=== PATIENT | male | born 1955 | race Caucasian/White ===

== ENCOUNTER 2021-06-14 10:19 | Emergency (ER) | payer MEDICAID, SELFPAY ==
[2021-06-14 10:55] VITALS: BP 122/46; PULSE 93; RESP 18; O2SAT 96; BMI 35.2
[2021-06-14 11:50] VITALS: BP 160/88; PULSE 89; RESP 21; TEMP 36.8; O2SAT 96; BMI 38.3
--- NOTE | 2021-06-14 12:09 | HMH.EDUTC ---
[facility] Disposition Clinical Impression: UTI (urinary tract infection) Qualifiers: Urinary tract infection type: site unspecified Hematuria presence: with hematuria Qualified Code(s): N39.0 - Urinary tract infection, site not specified; R31.9 - Hematuria, unspecified Disposition: Home, Self-Care Condition on Discharge: Good Instructions: DI for Urinary Tract Infection (UTI), Urinary Tract Infection Additional Instructions: Drink plenty of fluids. Take tylenol or ibuprofen for pain or fever. Take the medications as directed. Follow up with your regular doctor. GO TO THE ER FOR ANY WORSENING SYMPTOMS Follow up with your primary care doctor for a recheck. If you don't have one, we will give you a list of doctors that are taking new patients. Please call one and get a follow up to make sure you are getting better. Prescriptions: Ciprofloxacin HCl [Cipro 500mg Tab] 500 mg PO BID 10 Days #20 tab Transmission Status: Pending to [id number] Referrals: Provider,Referral, [Primary Care Provider] - Time of Disposition: 12:21 Medical Decision Making - Medical Records Medical records reviewed: No: I reviewed the patient's medical records. - Robert Inquiry Pt receiving controlled substance: No Vital Signs: 06/14/21 10:55 06/14/21 11:50 Temperature 98.3 F Temperature Source Oral Pulse Rate [Left Radial] 93 H 89 Respiratory Rate 18 21 Blood Pressure [Right Arm] 122/46 L 160/88 H Blood Pressure Mean [Right Arm] 71 112 Blood Pressure Source [Right Arm] Automatic Cuff Automatic Cuff Blood Pressure Position [Right Arm] Sitting Sitting 02 Sat by Pulse Oximetry 96 96 Oxygen Delivery Method Room Air Room Air - Lab Data Lab results reviewed: Yes: I reviewed the patient's lab results. Lab Results 06/14/21 12:10: Urine Color Evelin, Urine Appearance Clear, Urine pH 5.5, Ur Specific [place] >= 1.030, Urine Protein 1+, Urine Glucose (UA) Negative, Urine Ketones Trace, Urine Blood 2+, Urine Nitrate Negative, Urine Bilirubin 1+ A, Urine Urobilinogen 1, Ur Leukocyte Esterase Negative Orders (Tests/Meds): ORDERS Category Date Time Status Urine Culture Stat Micro 06/14/21 11:50 Ordered [facility] HPI - General Stated complaint: possible uti Time Seen by Provider: 06/14/21 12:09 Mode of Arrival: Ambulatory Source of Information: Patient Limitations: No Limitations Description of Symptoms (Recalled from Triage Doc. by RN): c/o trouble urinating and burning while urinating, thinks he has some prostate trouble but hasnt seen a doctor about it. Says he has a feeling of motion sickness, denies any flank pain or chest pain at this time. - History of Present Illness Provider Complaint: He has been having burning with urination and low back pain for the past 3 days. His urine has been dark and kind of foul smelling also. He has had a uti and a prostate infection in the past and he thinks that is what is going on now. - Related Data Previous Rx's Medication Instructions Recorded Ciprofloxacin HCl [Cipro 500mg 500 mg PO BID 10 Days #20 tab 06/14/21 Tab] Allergies Allergy/AdvReac Type Severity Reaction Status Date / Time No Known Allergies Allergy Verified 06/14/21 12:10 [facility] History - Hepatitis A Screen Attestation statement:: This patient has been screened for Hepatitis A risk factors. I have reviewed the patient's past medical history: Yes ROS Obtained: Yes All systems reviewed & no additional complaints - Constitutional Constitutional: Reports chills, Denies fever(s), Reports poor appetite, Reports malaise - Eyes Eyes: Denies eye discharge - Gastrointestinal Gastrointestingal: Denies: abdominal pain, diarrhea, nausea, vomiting - Genitourinary Male Genitourinary: Reports as per HPI - Musculoskeletal Musculoskeletal: Reports back pain - Integumentary/Breasts Skin/Breast: Denies rash Physical Exam - General General appearance: alert, in no mary
[2021-06-14 12:15] LABS: Apearance,Urine Clear (Clear); Bilirubin,Urine 1+ (Negative); Blood, Urine 2+ (Negative); Color,Urine Amber (Yellow); Glucose,Urine (UA) Negative (Negative); Ketones,Urine TRACE (Negative); PH,Urine 5.5 (5.0-8.5); Protein,Urine 1+ (Negative); Specific Gravity, Urine >= 1.030 (1.005-1.030); UTC Leukocyte Esterase,Urine Negative (Negative); UTC Nitrate,Urine Negative (Negative); Urobilinogen,Urine 1 EU/dl (0.2)
[2021-06-14 12:27] VITALS: BP 106/88; PULSE 89; RESP 21; TEMP 36.8; O2SAT 96
== END 2021-06-14 12:38 | disposition home or self-care (01) ==
LOC: ER 10:35 → UTC 10:37
PROVIDERS: Emergency Provider Nurse Practitioner Family
DX: N30.01 Acute cystitis with hematuria (principal)
CPT/HCPCS: 81003; 87086; 96372; 99202; G0463

== ENCOUNTER 2021-11-14 11:44 | Inpatient (IN) | payer MEDICAID, SELFPAY ==
[2021-11-14] VITALS (12 sets, daily range): BP systolic 97–152; BP diastolic 48–89; PULSE 76–118; RESP 15–32; TEMP 36.9–37.3; O2SAT 83–100; BMI 43.0; BMI 37.6
--- NOTE | 2021-11-14 11:57 | XR_ITS ---
PROCEDURE INFORMATION: Exam: XR Chest Exam date and time: 11/14/2021 11:57 AM Age: 66 years old Clinical indication: Cough TECHNIQUE: Imaging protocol: XR of the chest. Views: 2 views. COMPARISON: No relevant prior studies available. FINDINGS: Lungs: Course reticular interstitial opacities bilaterally. Pleural spaces: Unremarkable. No pleural effusion. No pneumothorax. Heart/Mediastinum: Unremarkable. No cardiomegaly. Bones/joints: Unremarkable. IMPRESSION: Course reticular interstitial opacities bilaterally may reflect infection, potentially with some background of interstitial lung disease.
--- NOTE | 2021-11-14 12:04 | ECG_ITS ---
APPROVED REPORT Exam: Resting ECG HR:108 bpm ECG Measurements Heart Rate 108 AXES NM 169 P 48 QRSd 88 QRS 25 QT 300 T 57 QTc 363 Conclusion SINUS TACHYCARDIA INDETERMINATE AXIS LOW QRS VOLTAGE IN PRECORDIAL LEADS [QRS DEFLECTION < 1.0 mV IN CHEST LEADS] POSSIBLE ANTERIOR MYOCARDIAL INFARCTION , PROBABLY OLD [30 ms Q WAVE IN V3/V4, OR R < 0.2 mV IN V4] ABNORMAL RHYTHM ECG UNCONFIRMED REPORT Electronically signed by : Sunny Lamb MD 11/14/2021 18:38:09
--- NOTE | 2021-11-14 12:19 | PC.NURSE ---
pt to radiology
--- NOTE | 2021-11-14 12:37 | HMH.EDSOB ---
ED Disposition Clinical Impression: Pneumonia due to COVID-19 virus, Acute respiratory failure with hypoxia Disposition: Admitted As Inpatient Condition on Discharge: Fair Referrals: Provider,Referral, [Primary Care Provider] - - Critical Care Critical Care Time: No Attestation: On 11/14/21, the high probability of a clinically significant, sudden or life threatening deterioration of the following system(s) required my full and direct attention, intervention and personal management. The time I documented below is in addition to time spent performing reported procedures but includes the following listed in this critical care notation. Medical Decision Making - Medical Records Medical records reviewed: Yes: I reviewed the patient's medical records. - Robert Inquiry Pt receiving controlled substance: No Vital Signs: 11/14/21 11:45 11/14/21 12:30 11/14/21 13:00 Temperature 99.2 F Temperature Source Oral Pulse Rate 102 H 102 H Pulse Rate [Radial] 118 H Respiratory Rate 30 H 15 21 Blood Pressure 115/78 119/72 Blood Pressure [Right Arm] 112/73 Blood Pressure Mean 85 87 Blood Pressure Mean [Right Arm] 86 Blood Pressure Position [Right Arm] Sitting 02 Sat by Pulse Oximetry 83 L 96 100 Oxygen Delivery Method Room Air 11/14/21 13:30 11/14/21 14:00 11/14/21 14:30 Temperature Temperature Source Pulse Rate 101 H 90 92 H Pulse Rate [Radial] Respiratory Rate 20 Blood Pressure 101/68 L 108/66 L 107/64 L Blood Pressure [Right Arm] Blood Pressure Mean 79 80 81 Blood Pressure Mean [Right Arm] Blood Pressure Position [Right Arm] 02 Sat by Pulse Oximetry 100 95 96 Oxygen Delivery Method - Lab Data Lab Results 11/14/21 12:50: SARS-CoV-2 (PCR) Detected A, Influenza A Untype (PCR) Not detected, Influenza Type B (PCR) Not detected 11/14/21 12:52: WBC 5.9, RBC 5.50, Hgb 17.7, Hct 51.7, MCV 94.0, MCH 32.2 H, MCHC 34.3, RDW 13.7, Plt Count 269, MPV 8.2, Neut % (Auto) 80.1 H, Lymph % (Auto) 10.5, [place] % (Auto) 8.6, Eos % (Auto) 0.1, Baso % (Auto) 0.6, Neut # (Auto) 4.7, Lymph # (Auto) 0.6 L, [place] # (Auto) 0.5, Eos # (Auto) 0.0, Baso # (Auto) 0.0 11/14/21 12:52: Sodium 134 L, Potassium 4.7, Chloride 96 L, Carbon Dioxide 30, Anion Gap 12.7, BUN 20, Creatinine 1.10, Estimated Creat Clear 63, Estimated GFR 67, Est GFR ( Amer) 82, Glucose 189 H, Calcium 8.3 L, Total Bilirubin 1.7 H, AST 133 H, ALT 89 H, Alkaline Phosphatase 64, Troponin I < 0.01, Total Protein 7.8, Albumin 4.3, Globulin 3.5 H, Albumin/Globulin Ratio 1.2 11/14/21 12:52: Lactate 1.4 Result diagrams: 11/14/21 12:52 11/14/21 12:52 Orders (Tests/Meds): ED MEDICATIONS Generic Name Dose Route Start Last Admin Trade Name Freq PRN Reason Stop Dose Admin Ceftriaxone Sodium 1 gm/ 50 mls @ 100 mls/hr 11/14/21 13:30 11/14/21 14:04 Sodium Chloride IV 11/28/21 13:29 100 mls/hr Q24H DOLLY Administration Discontinued Medications Generic Name Dose Route Start Last Admin Trade Name Freq PRN Reason Stop Dose Admin Albuterol/Ipratropium 3 ml 11/14/21 11:58 11/14/21 12:56 Ipratropium/Albuterol 3 Ml [facility] 11/14/21 11:59 3 ml ONCE ONE Administration Albuterol/Ipratropium 3 ml 11/14/21 13:37 Ipratropium/Albuterol 3 Ml Neb 11/14/21 13:38 ONCE ONE Dexamethasone Sodium Phosphate 10 mg 11/14/21 11:58 11/14/21 12:55 Dexamethasone 4mg/Ml 5ml Mdv IV 11/14/21 11:59 10 mg ONCE ONE Administration Doxycycline Hyclate 100 mg 11/14/21 13:19 Doxycycline Hycl 100 Mg Tablet PO 11/14/21 13:20 ONCE STA ORDERS Category Date Time Status Troponin I Q3H Lab 11/14/21 15:00 Ordered Troponin I Q3H Lab 11/14/21 18:00 Ordered Blood Culture Stat Micro 11/14/21 12:52 Received - Radiology Data #1 Image(s): Chest Image Reviewed: Yes I reviewed the patient's radiology results, Yes I reviewed the patient's radiology image, Yes I reviewed the patient's radiology imag
[2021-11-14 13:12] LABS: Basophils % 0.6 % (0.1-2.0); Eosinophils % 0.1 % (0.1-12.0); Hematocrit 51.7 % (42.0-52.0); Hemoglobin 17.7 g/dL (14.1-18.0); Lymphocytes # 0.6 K/mm3 (0.7-4.5); Lymphocytes % 10.5 % (10-50); Mean Corpuscular HGB Conc 34.3 g/dL (31.8-35.4); Mean Corpuscular Hemoglobin 32.2 pg (27.0-31.2); Mean Platelet Volume 8.2 fl (7.4-10.4); Monocytes # 0.5 K/mm3 (0.1-1.0); Monocytes % 8.6 % (1.7-9.3); Neutrophils # 4.7 K/mm3 (1.8-7.8); Neutrophils % 80.1 % (37.0-80.0); Platelet Count 269 K/mm3 (142-424); Red Cell Distribution Width 13.7 % (11.5-17.5); White Blood Count 5.9 K/mm3 (4.8-10.8)
[2021-11-14 13:14] LABS: Influenza A, PCR Not Detected (NotDetected); Influenza B, PCR Not Detected (NotDetected)
[2021-11-14 13:17] LABS: Chloride 96 mmol/L (98-107); Sodium 134 mmol/L (136-145)
[2021-11-14 13:18] LABS: Potassium 4.7 mmoL/L (3.5-5.1)
[2021-11-14 13:20] LABS: Alanine Aminotransferase 89 U/L (12-78); Albumin Level 4.3 g/dl (3.5-5.0); Albumin/Globulin Ratio 1.2 (1.1-1.8); Alkaline Phosphatase 64 U/L (38-126); Anion Gap 12.7 mEq/L (5-15); Aspartate Amino Transferase 133 U/L (17-59); Bilirubin,Total 1.7 mg/dl (0.2-1.3); Blood Urea Nitrogen 20 mg/dl (9-20); Carbon Dioxide 30 mmol/L (22.0-30.0); Creatinine Clearance Estimated 63 mL/min (50-200); Estimated Glomerular Filt Rate 67 ml/min (>60); GFR (African American) 82 ML/MIN (>60); Globulin 3.5 g/dL (1.3-3.2); Total Protein,Serum 7.8 g/dl (6.3-8.2)
[2021-11-14 13:21] LABS: Calcium 8.3 mg/dl (8.4-10.2); Glucose 189 mg/dl (74-100); Lactic Acid 1.4 mmol/L (0.7-2.1)
--- NOTE | 2021-11-14 13:30 | PC.NURSE ---
PT RESTING UPDATED ON PLAN OF CARE
[2021-11-14 13:38] LABS: Coronavirus 19, PCR Detected (NotDetected)
[2021-11-14 13:38] LABS: Troponin I < 0.01 ng/ml (0.00-0.034)
--- NOTE | 2021-11-14 14:42 | PC.NURSE ---
Dr. Evans returned call to Dr. Jean-Baptiste at this time.
--- NOTE | 2021-11-14 14:57 | PC.NURSE ---
UPDATED PT'S ON PLAN OF CARE. PASSWORD TO CALL IS [phone]
--- NOTE | 2021-11-14 15:35 | PC.NURSE ---
REPORT CALLED TO FLOOR
--- NOTE | 2021-11-14 16:26 | PC.NURSE ---
2nd floor staff down here to get patient and take them to inpatient room.
--- NOTE | 2021-11-14 16:33 | PC.NURSE ---
Pt arrived to the floor at this time
[2021-11-14 17:30] LABS: Hemoglobin A1C 7.5 % (4.0-6.0)
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
--- NOTE | 2021-11-14 17:44 | CT_ITS ---
PROCEDURE INFORMATION: Exam: CTA Chest With Contrast Exam date and time: 11/14/2021 5:44 PM Age: 66 years old Clinical indication: Shortness of breath; Additional info: Covid-19 pneumonia, hypoxia TECHNIQUE: Imaging protocol: Computed tomographic angiography of the chest with contrast. 3D rendering (Not supervised by radiologist): MIP and/or 3D reconstructed images were created by the technologist. Radiation optimization: All CT scans at this facility use at least one of these dose optimization techniques: automated exposure control; mA and/or kV adjustment per patient size (includes targeted exams where dose is matched to clinical indication); or iterative reconstruction. Contrast material: ISOVUE 350; Contrast volume: 70 ml; Contrast route: INTRAVENOUS (IV); COMPARISON: CR XR CHEST 2V 11/14/2021 12:11 PM FINDINGS: Pulmonary arteries: Normal. No pulmonary emboli. Aorta: Unremarkable. No aortic aneurysm. No aortic dissection. Lungs: Chronic interstitial lung disease and pulmonary fibrosis. Superimposed ground-glass opacities consistent with multifocal pneumonia. There is scarring and atelectasis in the left lung base. Pleural spaces: Unremarkable. No pneumothorax. No pleural effusion. Heart: Unremarkable. No cardiomegaly. No pericardial effusion. Lymph nodes: Unremarkable. No enlarged lymph nodes. Gallbladder and bile ducts: Gallstone. Bones/joints: Unremarkable. No acute fracture. Soft tissues: Unremarkable. IMPRESSION: 1. Multifocal pneumonia superimposed on chronic interstitial lung disease and other chronic changes in the lungs. 2. No pulmonary embolism
[2021-11-14 17:56] LABS: Thyroid Stimulating Hormone 0.85 uIU/mL (0.465-4.68)
[2021-11-15] VITALS (10 sets, daily range): BP systolic 120–164; BP diastolic 65–84; PULSE 60–88; RESP 17–19; TEMP 36.5–36.9; O2SAT 92–96; BMI 36.1
[2021-11-15 06:37] LABS: Basophils % 0.2 % (0.1-2.0); Eosinophils % 0.1 % (0.1-12.0); Hematocrit 48.1 % (42.0-52.0); Hemoglobin 16.4 g/dL (14.1-18.0); Lymphocytes % 16.4 % (10-50); Mean Corpuscular HGB Conc 34.1 g/dL (31.8-35.4); Mean Corpuscular Hemoglobin 32.4 pg (27.0-31.2); Mean Platelet Volume 8.5 fl (7.4-10.4); Monocytes # 0.7 K/mm3 (0.1-1.0); Monocytes % 10.4 % (1.7-9.3); Neutrophils # 4.6 K/mm3 (1.8-7.8); Neutrophils % 72.9 % (37.0-80.0); Platelet Count 278 K/mm3 (142-424); Red Blood Count 5.06 M/mm3 (4.60-6.20); Red Cell Distribution Width 13.9 % (11.5-17.5); White Blood Count 6.3 K/mm3 (4.8-10.8)
[2021-11-15 06:42] LABS: Chloride 99 mmol/L (98-107)
[2021-11-15 06:43] LABS: Potassium 4.6 mmoL/L (3.5-5.1); Sodium 134 mmol/L (136-145)
[2021-11-15 06:45] LABS: Blood Urea Nitrogen 20 mg/dl (9-20); Creatinine Clearance Estimated 124 mL/min (50-200); Estimated Glomerular Filt Rate 85 ml/min (>60); GFR (African American) 103 ML/MIN (>60)
[2021-11-15 06:46] LABS: Anion Gap 12.6 mEq/L (5-15); Calcium 8.4 mg/dl (8.4-10.2); Carbon Dioxide 27 mmol/L (22.0-30.0); Glucose 153 mg/dl (74-100)
--- NOTE | 2021-11-15 10:05 | HMH.PHAVTE ---
[facility] Pharmacy VTE Monitoring - Patient Demographics Admission date: 11/15/21 Report Date: 11/15/21 Time: 10:05 Allergies/Adverse Reactions: Patient Allergies No Known Allergies Allergy (Verified 06/14/21 12:10) Height: 1.8 m Weight: 117 kg Patient Problems: Current Active Problems Pneumonia due to COVID-19 virus (Acute) Acute respiratory failure with hypoxia (Acute) Solitary kidney, acquired (Acute) Tobacco abuse (Acute) Back pain (Acute) - VTE Risk Labs: VTE Related Lab Results Hgb 16.4 g/dL (14.1-18.0) 11/15/21 05:15 Hct 48.1 % (42.0-52.0) 11/15/21 05:15 Plt Count 278 K/mm3 (142-424) 11/15/21 05:15 BUN 20 mg/dl (9-20) 11/15/21 05:15 Creatinine 0.90 mg/dl (0.66-1.25) 11/15/21 05:15 Estimated Creat Clear 124 mL/min (50-200) 11/15/21 05:15 VTE Score: 5 VTE Risk Level: Low Risk - Prophylaxis Types of VTE Prophylaxis: Pharmacological Pharmacologic Type: Enoxaparin (LOVENOX ORDERED WITH COVID ORDER SET.)
--- NOTE | 2021-11-15 13:20 | XR_ITS ---
PROCEDURE INFORMATION: Exam: XR Chest Exam date and time: 11/15/2021 1:20 PM Age: 66 years old Clinical indication: Shortness of breath; Additional info: Increased oxygen demand TECHNIQUE: Imaging protocol: XR of the chest. Views: 1 view. COMPARISON: CR XR CHEST 2V 11/14/2021 12:11 PM FINDINGS: Lungs: COPD, interstitial disease, and right upper lobe airspace disease. Pleural spaces: Mild pleural thickening. Heart/Mediastinum: Cardiomegaly. Diaphragm: Asymmetric elevation of the right hemidiaphragm. Bones/joints: Osteopenia and degenerative change. IMPRESSION: COPD, interstitial disease, and right upper lobe airspace disease.
--- NOTE | 2021-11-15 13:51 | P.PN_ITS ---
Internal Medicine - PN: Subj *Date: 11/15/21 *Time: 13:51 Interval history: Today the patient tells me that he has been taking Suboxone and Neurontin which he buys off the street. He is uncertain about his doses. He takes the Suboxone each evening. It sounds like he might be taking fairly high doses of Neurontin. He states that his breathing seems about the same. Exam Vital signs and Labs for Last 24 Hours: Temp Pulse Resp BP Pulse Ox 98.2 F 74 18 129/69 94 L 11/15/21 12:00 11/15/21 12:00 11/15/21 12:00 11/15/21 12:00 11/15/21 12:00 Laboratory Results - last 24 hr 11/14/21 12:52: Hemoglobin A1c 7.5 H 11/14/21 12:52: TSH 0.85 11/15/21 05:15: WBC 6.3, RBC 5.06, Hgb 16.4, Hct 48.1, MCV 95.0 H, MCH 32.4 H, MCHC 34.1, RDW 13.9, Plt Count 278, MPV 8.5, Neut % (Auto) 72.9, Lymph % (Auto) 16.4, [place] % (Auto) 10.4 H, Eos % (Auto) 0.1, Baso % (Auto) 0.2, Neut # (Auto) 4.6, Lymph # (Auto) 1.0, [place] # (Auto) 0.7, Eos # (Auto) 0.0, Baso # (Auto) 0.0 11/15/21 05:15: Sodium 134 L, Potassium 4.6, Chloride 99, Carbon Dioxide 27, Anion Gap 12.6, BUN 20, Creatinine 0.90, Estimated Creat Clear 124, Estimated GFR 85, Est GFR ( Amer) 103 D, Glucose 153 H, Calcium 8.4 I & O for Last 24 hours: Intake & Output 11/13/21 11/14/21 11/15/21 11/16/21 11:59 11:59 11:59 11:59 Intake Total 600 / 600 360 / 360 Balance 600 / 600 360 / 360 Weight 275 lb 257 lb 15.053 oz - *Routine HEENT Exam Head: Present: normocephalic Eye: Present: EOMI, PERRL ENT: Present: mucous membranes moist - *Routine Neck Exam Present: supple. Absent: lymphadenopathy - *Routine Respiratory Exam Present: decreased breath sounds, rales (Left base more prominent than right) - *Routine Cardiovascular Exam Present: RRR - *Routine Abdominal Exam Present: soft, normoactive bowel sounds, obese. Absent: tenderness - *Routine Extremities Exam Absent: cyanosis, clubbing, edema - *Routine Skin Exam Present: warm. Absent: rash - *Routine Neurological Exam Present: alert, oriented X3 Assessment and Plan (1) Acute respiratory failure with hypoxia Status: Acute Category: Medical Code(s): J96.01 - Acute respiratory failure with hypoxia (2) Pneumonia due to COVID-19 virus Status: Acute Category: Medical Code(s): U07.1 - COVID-19; J12.82 - Pneumonia due to coronavirus disease 2019 (3) Tobacco abuse Status: Acute Category: Medical Code(s): Z72.0 - Tobacco use (4) Solitary kidney, acquired Status: Acute Category: Medical Code(s): Z90.5 - Acquired absence of kidney (5) Back pain Status: Acute Category: Medical Code(s): M54.9 - Dorsalgia, unspecified (6) Illicit drug use Status: Acute Category: Social Hx Code(s): F19.90 - Other psychoactive substance use, unspecified, uncomplicated - Assessment and plan all Dx Assessment and Plan for all problems:: Add gabapentin 600 mg 3 times a day.
--- NOTE | 2021-11-15 14:20 | PC.NURSE ---
SPUTUM SAMPLE OBTAINED AND SENT TO LAB
[2021-11-16] VITALS (11 sets, daily range): BP systolic 115–127; BP diastolic 69–78; PULSE 60–90; RESP 16–20; TEMP 36.8–37.2; O2SAT 92–95; BMI 36.6
[2021-11-16 07:35] LABS: Chloride 99 mmol/L (98-107); Potassium 4.7 mmoL/L (3.5-5.1); Sodium 134 mmol/L (136-145)
[2021-11-16 07:37] LABS: Alanine Aminotransferase 70 U/L (12-78); Aspartate Amino Transferase 65 U/L (17-59); Blood Urea Nitrogen 22 mg/dl (9-20); Creatinine Clearance Estimated 125 mL/min (50-200); Estimated Glomerular Filt Rate 75 ml/min (>60); GFR (African American) 91 ML/MIN (>60)
[2021-11-16 07:38] LABS: Albumin Level 3.8 g/dl (3.5-5.0); Albumin/Globulin Ratio 1.2 (1.1-1.8); Alkaline Phosphatase 57 U/L (38-126); Anion Gap 8.7 mEq/L (5-15); Bilirubin,Total 1.1 mg/dl (0.2-1.3); Calcium 8.1 mg/dl (8.4-10.2); Carbon Dioxide 31 mmol/L (22.0-30.0); Globulin 3.1 g/dL (1.3-3.2); Glucose 143 mg/dl (74-100); Total Protein,Serum 6.9 g/dl (6.3-8.2)
--- NOTE | 2021-11-16 08:47 | HMH.ACPN2 ---
Internal Medicine - PN: Subj *Date: 11/16/21 *Time: 08:47 Interval history: Patient states he feels he is breathing better. O2 sats 98 to percent on O2 per nasal cannula at 6 L/min. He denies chest pain. He feels he is eating okay. He states he slept well last night. Chest x-ray repeated yesterday 11/15/2021 revealed COPD, interstitial disease, and right upper lobeAirspace disease. Exam Vital signs and Labs for Last 24 Hours: Temp Pulse Resp BP Pulse Ox 98.4 F 90 16 122/71 92 L 11/16/21 07:42 11/16/21 07:42 11/16/21 07:42 11/16/21 07:42 11/16/21 08:05 Laboratory Results - last 24 hr 11/16/21 06:40: Sodium 134 L, Potassium 4.7, Chloride 99, Carbon Dioxide 31 H, Anion Gap 8.7, BUN 22 H, Creatinine 1.00, Estimated Creat Clear 125, Estimated GFR 75, Est GFR ( Amer) 91, Glucose 143 H, Calcium 8.1 L, Total Bilirubin 1.1, AST 65 H D, ALT 70, Alkaline Phosphatase 57, Total Protein 6.9, Albumin 3.8, Globulin 3.1, Albumin/Globulin Ratio 1.2 I & O for Last 24 hours: Intake & Output 11/13/21 11/14/21 11/15/21 11/16/21 11:59 11:59 11:59 11:59 Intake Total 600 / 600 1080 / 1080 Output Total 500 / 500 Balance 600 / 600 580 / 580 Weight 275 lb 257 lb 15.053 oz 261 lb 11.019 oz - Constitutional no acute distress Comments: Sitting in chair at bedside and has completed his breakfast. He appears comfortable. - *Routine Respiratory Exam Present: crackles (Greater on the left) - *Routine Cardiovascular Exam Present: RRR - *Routine Abdominal Exam Present: soft, normoactive bowel sounds, obese - *Routine Extremities Exam Absent: edema, calf tenderness - *Routine Neurological Exam Present: alert, oriented X3 Assessment and Plan (1) Acute respiratory failure with hypoxia Status: Acute Category: Medical Code(s): J96.01 - Acute respiratory failure with hypoxia (2) Pneumonia due to COVID-19 virus Status: Acute Category: Medical Code(s): U07.1 - COVID-19; J12.82 - Pneumonia due to coronavirus disease 2019 (3) Tobacco abuse Status: Acute Category: Medical Code(s): Z72.0 - Tobacco use (4) Solitary kidney, acquired Status: Acute Category: Medical Code(s): Z90.5 - Acquired absence of kidney (5) Back pain Status: Acute Category: Medical Code(s): M54.9 - Dorsalgia, unspecified (6) Illicit drug use Status: Acute Category: Social Hx Code(s): F19.90 - Other psychoactive substance use, unspecified, uncomplicated - Assessment and plan all Dx Assessment and Plan for all problems:: Continue with current pulmonary care. Pulmonary service to see patient today.
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
[2021-11-16 11:43] LABS: C-Reactive Protein 48.1 mg/L (0-4)
[2021-11-17] VITALS (8 sets, daily range): BP systolic 122–131; BP diastolic 69–84; PULSE 60–90; RESP 16–20; TEMP 36.4–36.6; O2SAT 91–97; BMI 36.1
[2021-11-17 07:34] LABS: Anion Gap 10.3 mEq/L (5-15); Blood Urea Nitrogen 17 mg/dl (9-20); Carbon Dioxide 28 mmol/L (22.0-30.0); Chloride 103 mmol/L (98-107); Creatinine Clearance Estimated 124 mL/min (50-200); Estimated Glomerular Filt Rate 97 ml/min (>60); Potassium 4.3 mmoL/L (3.5-5.1); Sodium 137 mmol/L (136-145)
[2021-11-17 07:35] LABS: Alanine Aminotransferase 62 U/L (12-78); Albumin Level 3.7 g/dl (3.5-5.0); Albumin/Globulin Ratio 1.3 (1.1-1.8); Alkaline Phosphatase 55 U/L (38-126); Aspartate Amino Transferase 44 U/L (17-59); Bilirubin,Total 0.9 mg/dl (0.2-1.3); Calcium 8.6 mg/dl (8.4-10.2); GFR (African American) 118 ML/MIN (>60); Globulin 2.9 g/dL (1.3-3.2); Glucose 149 mg/dl (74-100); Total Protein,Serum 6.6 g/dl (6.3-8.2)
--- NOTE | 2021-11-17 09:13 | P.PN_ITS ---
Internal Medicine - PN: Subj *Date: 11/17/21 *Time: 10:32 Interval history: No acute respiratory events overnight. Patient admits continued improvement in his symptoms. Exam - Constitutional Constitutional:: Present: no acute distress, comfortable - HENMT Exam HENMT: Present: normocephalic, atraumatic - Eye Exam Eyes:: Present: normal appearance both eyes and related structures - Neck Exam Neck:: Present: normal visual inspection - Respiratory Exam Respiratory:: Present: able to speak in complete sentences, no respiratory distress, decreased breath sounds. Absent: wheezing - Cardiovascular Exam Cardiac:: Present: S1, S2 - GI Exam GI:: Present: soft - Skin Exam Skin: Present: warm, no rash - Neurological Exam Neurological: Present: alert, awake, normal cognition - Extremities Exam Extremities: Present: no cyanosis, no clubbing, no edema Assessment and Plan (1) Acute respiratory failure with hypoxia Status: Acute Category: Medical Code(s): J96.01 - Acute respiratory failure with hypoxia (2) Pneumonia due to COVID-19 virus Status: Acute Category: Medical Code(s): U07.1 - COVID-19; J12.82 - Pneumonia due to coronavirus disease 2019 (3) Tobacco abuse Status: Acute Category: Medical Code(s): Z72.0 - Tobacco use (4) Solitary kidney, acquired Status: Acute Category: Medical Code(s): Z90.5 - Acquired absence of kidney (5) Back pain Status: Acute Category: Medical Code(s): M54.9 - Dorsalgia, unspecified (6) Illicit drug use Status: Acute Category: Social Hx Code(s): F19.90 - Other psychoactive substance use, unspecified, uncomplicated - Assessment and plan all Dx Assessment and Plan for all problems:: #Acute hypoxic respiratory failure: #COVID-19 pneumonia: # ILD # Emphysema 66-year-old greater than [id number] smoking smoking 2 to 1/2 packs a day. Not yet vaccinated for COVID-19 pneumonia. Present with worsening respiratory distress found to be positive for COVID-[address] chest from admission reviewed, no evidence of pulmonary embolism, showed bilateral upper lobe predominant emphysema, interstitial changes/pulmonary fibrosis along with groundglass opacities. Dense consolidation noted in lower lobes and groundglass opacities noted in the right middle lobe and left lingula. 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 Afebrile. No evidence of leukocytosis. Interval update: He continued to receive ceftriaxone azithromycin along with remdesivir and dexamethasone. CRP elevated at 48.1. Respiratory status improving with improving oxygen saturations, saturating 95% on 4 L nasal cannula, weaned to 3 L. We will continue to wean as tolerated. Plan: -Continue awake proning protocol, discussed with the patient this morning and agreed to be compliant -Ceftriaxone and azithromycin x5 days for community-acquired pneumonia, can be weaned to levofloxacin to complete a total of 5-day course -Continue remdesivir x 5 days OR untill Discharge and dexamethasone x 10 days for COVID-19 pneumonia, will hold off on initiating baricitinib at this point of time. -Advair 250 twice daily scheduled along with Combivent every 6 hours as needed basis. -Recommend volume restriction with net negative daily goal #Thank you for involving pulmonary in this patient care. We will continue to follow.
--- NOTE | 2021-11-17 09:52 | P.PN_ITS ---
Internal Medicine - PN: Subj *Date: 11/17/21 *Time: 09:52 Interval history: He is clinically quite stable but remains on 6 L of nasal O2. Discussed follow- up. Exam Vital signs and Labs for Last 24 Hours: Temp Pulse Resp BP Pulse Ox 97.8 F 83 20 131/77 96 11/17/21 08:00 11/17/21 08:00 11/17/21 08:00 11/17/21 08:00 11/17/21 08:00 Laboratory Results - last 24 hr 11/16/21 06:40: C-Reactive Protein 48.1 H 11/17/21 06:47: Sodium 137, Potassium 4.3, Chloride 103, Carbon Dioxide 28, Anion Gap 10.3, BUN 17, Creatinine 0.80, Estimated Creat Clear 124, Estimated GFR 97, Est GFR ( Amer) 118 D, Glucose 149 H, Calcium 8.6, Total Bilirubin 0.9, AST 44 D, ALT 62, Alkaline Phosphatase 55, Total Protein 6.6, Albumin 3.7, Globulin 2.9, Albumin/Globulin Ratio 1.3 I & O for Last 24 hours: Intake & Output 11/14/21 11/15/21 11/16/21 11/17/21 11:59 11:59 11:59 11:59 Intake Total 600 / 600 1080 / 1080 840 / 840 Output Total 800 / 800 325 / 325 Balance 600 / 600 280 / 280 515 / 515 Weight 275 lb 257 lb 15.053 oz 261 lb 11.019 oz 258 lb 6.4 oz Microbiology Reports for the Last 24 Hours: Microbiology 11/16/21 11:40 Sputum - Expectorated Sputum Gram Stain - Final 11/16/21 11:40 Sputum - Expectorated Sputum Sputum Culture - Preliminary 11/14/21 12:52 Blood Blood Culture - Preliminary NO GROWTH AFTER 48 HOURS 11/14/21 12:52 Blood Blood Culture - Preliminary NO GROWTH AFTER 48 HOURS - Constitutional no acute distress - *Routine HEENT Exam Head: Present: normocephalic Eye: Present: EOMI, PERRL ENT: Present: mucous membranes moist - *Routine Neck Exam Present: supple. Absent: lymphadenopathy - *Routine Respiratory Exam Present: decreased breath sounds, rales - *Routine Cardiovascular Exam Present: RRR - *Routine Abdominal Exam Present: soft, normoactive bowel sounds, obese. Absent: tenderness - *Routine Extremities Exam Absent: cyanosis, clubbing, edema - *Routine Skin Exam Present: warm. Absent: rash - *Routine Neurological Exam Present: alert, oriented X3 Assessment and Plan (1) Acute respiratory failure with hypoxia Status: Acute Category: Medical Code(s): J96.01 - Acute respiratory failure with hypoxia (2) Pneumonia due to COVID-19 virus Status: Acute Category: Medical Code(s): U07.1 - COVID-19; J12.82 - Pneumonia due to coronavirus disease 2019 (3) Tobacco abuse Status: Acute Category: Medical Code(s): Z72.0 - Tobacco use (4) Solitary kidney, acquired Status: Acute Category: Medical Code(s): Z90.5 - Acquired absence of kidney (5) Back pain Status: Acute Category: Medical Code(s): M54.9 - Dorsalgia, unspecified (6) Illicit drug use Status: Acute Category: Social Hx Code(s): F19.90 - Other psychoactive substance use, unspecified, uncomplicated - Assessment and plan all Dx Assessment and Plan for all problems:: Continue present treatment.
[2021-11-18] VITALS: BP 113/64; PULSE 50; PULSE 59; RESP 16; TEMP 36.3; O2SAT 95
[2021-11-18 04:00] VITALS: BP 125/74; PULSE 50; PULSE 53; RESP 16; TEMP 36.4; O2SAT 100
[2021-11-18 04:58] VITALS: BMI 36.6
[2021-11-18 06:58] LABS: Albumin Level 3.6 g/dl (3.5-5.0); Albumin/Globulin Ratio 1.2 (1.1-1.8); Alkaline Phosphatase 49 U/L (38-126); Anion Gap 10.4 mEq/L (5-15); Bilirubin,Total 0.9 mg/dl (0.2-1.3); Blood Urea Nitrogen 18 mg/dl (9-20); Calcium 8.5 mg/dl (8.4-10.2); Carbon Dioxide 28 mmol/L (22.0-30.0); Chloride 104 mmol/L (98-107); Creatinine Clearance Estimated 125 mL/min (50-200); Estimated Glomerular Filt Rate 114 ml/min (>60); GFR (African American) 137 ML/MIN (>60); Glucose 132 mg/dl (74-100); Potassium 4.4 mmoL/L (3.5-5.1); Sodium 138 mmol/L (136-145); Total Protein,Serum 6.6 g/dl (6.3-8.2)
[2021-11-18 07:40] VITALS: BP 117/56; PULSE 55; RESP 20; TEMP 36.6; O2SAT 92
[2021-11-18 08:00] VITALS: PULSE 60
--- NOTE | 2021-11-18 08:31 | HMH.ACPN2 ---
Internal Medicine - PN: Subj *Date: 11/18/21 *Time: 08:31 Interval history: Patient states he has a minimal cough. He denies shortness of breath. He denies chest pain. He is ambulated in the room without problems. He is eating without problems as well. He states he may go home today. Initially nurses had him down to 1 L/min of oxygen and had to increase him during the night to 2 L. O2 sats are good on room air this AM.Blood chemistries this morning show normal electrolytes and renal function. Exam Vital signs and Labs for Last 24 Hours: Temp Pulse Resp BP Pulse Ox 97.9 F 55 L 20 117/56 L 92 L 11/18/21 07:40 11/18/21 07:40 11/18/21 07:40 11/18/21 07:40 11/18/21 07:40 Laboratory Results - last 24 hr 11/18/21 06:01: Sodium 138, Potassium 4.4, Chloride 104, Carbon Dioxide 28, Anion Gap 10.4, BUN 18, Creatinine 0.70, Estimated Creat Clear 125, Estimated GFR 114, Est GFR ( Amer) 137, Glucose 132 H, Calcium 8.5, Total Bilirubin 0.9, Alkaline Phosphatase 49, Total Protein 6.6, Albumin 3.6, Globulin 3.0, Albumin/Globulin Ratio 1.2 I & O for Last 24 hours: Intake & Output 11/15/21 11/16/21 11/17/21 11/18/21 11:59 11:59 11:59 11:59 Intake Total 600 / 600 1080 / 1080 840 / 840 840 / 840 Output Total 800 / 800 325 / 325 2 / 2 Balance 600 / 600 280 / 280 515 / 515 838 / 838 Weight 257 lb 15.053 oz 261 lb 11.019 oz 258 lb 6.4 oz 262 lb 1.6 oz Microbiology Reports for the Last 24 Hours: Microbiology 11/16/21 11:40 Sputum - Expectorated Sputum Gram Stain - Final 11/16/21 11:40 Sputum - Expectorated Sputum Sputum Culture - Preliminary - Constitutional no acute distress Comments: Sitting in chair at bedside and appears comfortable. No dyspnea with talking - *Routine Respiratory Exam Present: rhonchi (Rare rhonchi in bases with good air exchange) - *Routine Cardiovascular Exam Present: RRR - *Routine Abdominal Exam Present: soft, normoactive bowel sounds, obese, hernia. Absent: tenderness, distended - *Routine Extremities Exam Absent: edema, calf tenderness - *Routine Neurological Exam Absent: alert, oriented X3 Assessment and Plan (1) Acute respiratory failure with hypoxia Status: Acute Category: Medical Code(s): J96.01 - Acute respiratory failure with hypoxia (2) Pneumonia due to COVID-19 virus Status: Acute Category: Medical Code(s): U07.1 - COVID-19; J12.82 - Pneumonia due to coronavirus disease 2019 (3) Tobacco abuse Status: Acute Category: Medical Code(s): Z72.0 - Tobacco use (4) Solitary kidney, acquired Status: Acute Category: Medical Code(s): Z90.5 - Acquired absence of kidney (5) Back pain Status: Acute Category: Medical Code(s): M54.9 - Dorsalgia, unspecified (6) Illicit drug use Status: Acute Category: Social Hx Code(s): F19.90 - Other psychoactive substance use, unspecified, uncomplicated - Assessment and plan all Dx Assessment and Plan for all problems:: Possible discharge today.
--- NOTE | 2021-11-18 09:15 | HMH.ACPN ---
Internal Medicine - PN: Subj *Date: 11/18/21 *Time: 09:15 Exam Vital signs and Labs for Last 24 Hours: Temp Pulse Resp BP Pulse Ox 97.9 F 55 L 20 117/56 L 92 L 11/18/21 07:40 11/18/21 07:40 11/18/21 07:40 11/18/21 07:40 11/18/21 07:40 Laboratory Results - last 24 hr 11/18/21 06:01: Sodium 138, Potassium 4.4, Chloride 104, Carbon Dioxide 28, Anion Gap 10.4, BUN 18, Creatinine 0.70, Estimated Creat Clear 125, Estimated GFR 114, Est GFR ( Amer) 137, Glucose 132 H, Calcium 8.5, Total Bilirubin 0.9, Alkaline Phosphatase 49, Total Protein 6.6, Albumin 3.6, Globulin 3.0, Albumin/Globulin Ratio 1.2 I & O for Last 24 hours: Intake & Output 11/15/21 11/16/21 11/17/21 11/18/21 23:59 23:59 23:59 23:59 Intake Total 1080 / 1080 960 / 960 720 / 720 360 / 360 Output Total 500 / 500 500 / 500 125 / 127 2 / 2 Balance 580 / 580 460 / 460 595 / 593 358 / 358 Weight 117 kg 118.7 kg 117.208 kg 118.887 kg Microbiology Reports for the Last 24 Hours: Microbiology 11/16/21 11:40 Sputum - Expectorated Sputum Gram Stain - Final 11/16/21 11:40 Sputum - Expectorated Sputum Sputum Culture - Preliminary Assessment and Plan (1) Acute respiratory failure with hypoxia Status: Acute Category: Medical Code(s): J96.01 - Acute respiratory failure with hypoxia (2) Pneumonia due to COVID-19 virus Status: Acute Category: Medical Code(s): U07.1 - COVID-19; J12.82 - Pneumonia due to coronavirus disease 2019 (3) Tobacco abuse Status: Acute Category: Medical Code(s): Z72.0 - Tobacco use (4) Solitary kidney, acquired Status: Acute Category: Medical Code(s): Z90.5 - Acquired absence of kidney (5) Back pain Status: Acute Category: Medical Code(s): M54.9 - Dorsalgia, unspecified (6) Illicit drug use Status: Acute Category: Social Hx Code(s): F19.90 - Other psychoactive substance use, unspecified, uncomplicated The patient's infection will respond to the chosen ABx?: Yes Is the patient receiving the right drug, dose, and route?: Yes Could a more targeted ABx be ordered?: No
--- NOTE | 2021-11-18 09:34 | HMH.PULMPN ---
Internal Medicine - PN: Subj *Date: 11/18/21 *Time: 10:38 Interval history: No acute respiratory events overnight. Patient admits continued improvement in his symptoms. Exam - Constitutional Constitutional:: Present: no acute distress, comfortable - HENMT Exam HENMT: Present: normocephalic, atraumatic - Eye Exam Eyes:: Present: normal appearance both eyes and related structures - Neck Exam Neck:: Present: normal visual inspection - Respiratory Exam Respiratory:: Present: able to speak in complete sentences, no respiratory distress, normal respiratory effort, rales - Cardiovascular Exam Cardiac:: Present: S1, S2 - GI Exam GI:: Present: soft - Skin Exam Skin: Present: warm, no rash - Neurological Exam Neurological: Present: alert, awake, normal cognition - Extremities Exam Extremities: Present: no cyanosis, no clubbing, no edema Assessment and Plan (1) Acute respiratory failure with hypoxia Status: Acute Category: Medical Code(s): J96.01 - Acute respiratory failure with hypoxia (2) Pneumonia due to COVID-19 virus Status: Acute Category: Medical Code(s): U07.1 - COVID-19; J12.82 - Pneumonia due to coronavirus disease 2019 (3) Tobacco abuse Status: Acute Category: Medical Code(s): Z72.0 - Tobacco use (4) Solitary kidney, acquired Status: Acute Category: Medical Code(s): Z90.5 - Acquired absence of kidney (5) Back pain Status: Acute Category: Medical Code(s): M54.9 - Dorsalgia, unspecified (6) Illicit drug use Status: Acute Category: Social Hx Code(s): F19.90 - Other psychoactive substance use, unspecified, uncomplicated - Assessment and plan all Dx Assessment and Plan for all problems:: #Acute hypoxic respiratory failure: #COVID-19 pneumonia: # ILD # Emphysema 66-year-old greater than [id number] smoking smoking 2 to 1/2 packs a day. Not yet vaccinated for COVID-19 pneumonia. Present with worsening respiratory distress found to be positive for COVID-[address] chest from admission reviewed, no evidence of pulmonary embolism, showed bilateral upper lobe predominant emphysema, interstitial changes/pulmonary fibrosis along with groundglass opacities. Dense consolidation noted in lower lobes and groundglass opacities noted in the right middle lobe and left lingula. 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 Afebrile. No evidence of leukocytosis. CRP elevated at 48.1. Interval update: He continued to receive ceftriaxone azithromycin along with remdesivir and dexamethasone. Respiratory status continued to improve, he on 2 L saturating 92% and above. Plan: -Continue nasal cannula oxygen supplementation to maintain O2 saturation goal of 90% and above. -Ceftriaxone and azithromycin x5 days for community-acquired pneumonia, will be completing his 5-day course today. -Continue remdesivir x 5 days OR untill Discharge and dexamethasone x 10 days for COVID-19 pneumonia, will hold off on initiating baricitinib at this point of time. -Advair 250 twice daily scheduled along with Combivent every 6 hours as needed basis. -Recommend volume restriction with net negative daily goal #Thank you for involving pulmonary in this patient care. Follow the patient in pulmonary clinic in 4 to 6 weeks.
[2021-11-18 09:42] LABS: Alanine Aminotransferase 70 U/L (12-78); Aspartate Amino Transferase 57 U/L (17-59)
--- NOTE | 2021-11-18 10:47 | PC.NURSE ---
Pts RA sat is 94% but decreases to 87% on ambulation. He was placed back on 2L NC and O2 saturation returned to 95%.
--- NOTE | 2021-11-18 10:52 | PC.NURSE ---
Pt waiting on O2 to be delivered from [facility], pts ride home is on her way.
[2021-11-18 11:20] VITALS: BP 125/74; PULSE 60; RESP 18; TEMP 36.8; O2SAT 90
--- NOTE | 2021-11-18 11:25 | CARE MANAGER ---
Patient Choice signed for [facility] r/t need for home O2. Order/clinical faxed and Kay with [facility] notified of new referral.
--- NOTE | 2021-11-19 14:11 | CARE MANAGER ---
CM called patient to discuss post discharge needs. Patient states that he has home O2 set up and is planning to get an O2 sensor so that he can check his status at home. He states that he has not had a chance to citrus picker his medication at the pharmacy and I educated him on importance of getting those picked up and started today. Patient voiced no needs at this time.
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
== END 2021-11-18 12:05 | disposition home or self-care (01) | DRG 177 ==
LOC: ER 14:45 → 2ND 15:02
PROVIDERS: Internal Medicine Pulmonary Disease; Admitting Provider Family Medicine; Emergency Provider Emergency Medicine; Visit Provider Family Medicine
DX: U07.1 COVID-19 (principal); J96.01 Acute respiratory failure with hypoxia; J12.82 Pneumonia due to coronavirus disease 2019; J84.9 Interstitial pulmonary disease, unspecified; F17.210 Nicotine dependence, cigarettes, uncomplicated; Z90.5 Acquired absence of kidney; G89.29 Other chronic pain; M79.662 Pain in left lower leg; M54.9 Dorsalgia, unspecified; J43.9 Emphysema, unspecified; R06.02 Shortness of breath
CPT/HCPCS: 36415; 71045; 71046; 71275; 80048; 80053; 83036; 83605; 84443; 84484; 85025; 86140; 87040; 87070; 87077; 87186; 87205; 93005; 94640; 94761; 96365; 96367; 96375; 99284; C9803; J0456; J0696; Q9967; U0003; U0005

== ENCOUNTER → 2022-02-04 12:29 | Outpatient (CLI) | payer MEDICAID, SELFPAY ==
[2022-02-04 13:30] VITALS: PULSE 86; PULSE 87
--- NOTE | 2022-02-04 14:04 | CT_ITS ---
FINAL REPORT CLINICAL HISTORY: lung cancer screening, current smoker 2ppd x40 years COMPARISON: January 29 and November 14, 2021 FINDINGS: Low-Dose Chest CT CTDI vol (mGy): 2.90 DLP (mGy-cm): 107.07 Axial images were obtained from the lung apex to the mid abdomen by computed tomography. Low-dose protocol was utilized. FINDINGS: CHEST: There is no axillary adenopathy. There is no hilar or mediastinal adenopathy. The heart is proper size. There is no pericardial or pleural effusion. There is moderate thickening of the entire thoracic esophagus favored to be inflammatory. Limited images of the upper abdomen are unremarkable. Lung window images demonstrate moderate changes of emphysema. There is moderate, predominantly peripheral, fibrosis/scarring. There are mild pulmonary ground-glass opacities that may represent resolving pneumonia. A 7 mm nodule is seen in the right upper lobe. There is a 2 mm nodule right lower lobe on image 53. A calcified granuloma is seen in the right lower lobe. IMPRESSION: S-modifier: Thickening of the entire thoracic esophagus, favor inflammatory. If indicated this could be further evaluated with upper endoscopy. Lung RADS category 3S. Recommend 6 month follow-up low-dose chest CT. Reviewed, Interpreted and Dictated by Adam Gloria III, MD Transcribed by Roge Casarez Authenticated by Adam Gloria III, MD on 02/04/2022 02:42:53 PM [facility]
--- NOTE | 2022-02-04 14:04 | XR_ITS ---
FINAL REPORT CLINICAL HISTORY: SOB, smoker COMPARISON: November 15, 2021 FINDINGS: Two views of the chest were obtained. The heart size and pulmonary vascularity are within normal limits. The mediastinum is normal. There is mild scarring/fibrosis. There is improved aeration of the lungs since the prior exam. There is no pneumothorax. The bony thorax is intact. IMPRESSION: Mild scarring/fibrosis. Improved aeration of the lungs. Reviewed, Interpreted and Dictated by Adam Gloria III, MD Transcribed by Irais Schaefer Authenticated by Adam Gloria III, MD on 02/04/2022 02:42:[address] [facility]
== END ==
PROVIDERS: PCP Internal Medicine; Visit Provider Internal Medicine Pulmonary Disease
DX: R06.02 Shortness of breath; R06.00 Dyspnea, unspecified; Z87.891 Personal history of nicotine dependence; Z12.2 Encounter for screening for malignant neoplasm of respiratory organs
CPT/HCPCS: 71046; 71271; 94060; 94618; 94640; 94727; 94729; 94762

== ENCOUNTER 2024-07-07 18:05 | Emergency (ER) | payer MEDICARE, SELFPAY ==
[2024-07-07 18:06] VITALS: BP 162/72; PULSE 105; RESP 13; TEMP 36.7; O2SAT 93; BMI 23.0
--- NOTE | 2024-07-07 18:25 | XR_ITS ---
PROCEDURE INFORMATION: Exam: XR Chest Exam date and time: 07/07/2024 6:39 PM Age: 68 years old Clinical indication: Shortness of breath TECHNIQUE: Imaging protocol: Radiologic exam of the chest. Views: 2 views. COMPARISON: CR XR CHEST 2V 02/04/2022 2:12 PM FINDINGS: Lungs: Diffuse increased interstitial lung markings. Pleural spaces: No large pleural effusion. No pneumothorax. Heart/Mediastinum: No cardiomegaly. Bones/joints: No acute findings. IMPRESSION: Diffuse increased interstitial lung markings, which may be seen with pulmonary edema or infection in the acute setting.
--- NOTE | 2024-07-07 18:30 | HMH.EDGENADL ---
Discharge Plan Disposition Patient Disposition: Home, Self-Care Condition: Good Prescriptions Prescriptions: New clindamycin HCl 300 mg capsule 300 mg PO TID 5 Days Qty: 15 0RF No Action metformin 1,000 mg tablet 1,000 mg PO BID Farxiga 10 mg tablet 10 mg PO DAILY albuterol sulfate 90 mcg/actuation HFA aerosol inhaler 2 inh IH Q6H PRN (Reason: shortness of breath or wheezing) 90 Days Qty: 8.5 3RF fluticasone propion-salmeterol 28 PUFFS/50 MCG inhaler 1 puffs IH BIDRT Qty: 1 2RF gabapentin 600 MG tablet 600 mg PO TID Qty: 90 1RF famotidine 20 MG tablet 20 mg PO BID Qty: 60 2RF ascorbic acid (vitamin C) 500 MG tablet 500 mg PO QID Qty: 120 0RF ergocalciferol (vitamin D2) 50,000 UNIT capsule 50,000 unit PO WEEKLY Qty: 4 1RF zinc sulfate 220 MG capsule 220 mg PO DAILY 0RF dexamethasone 6 MG tablet 6 mg PO DAILY Qty: 20 0RF cefdinir 300 MG capsule 300 mg PO BID Qty: 20 0RF Referrals Follow up/Referrals: Godfrey Joshua MD [Primary Care Provider] - See instructions Activity Restrictions/Add. Instructions Additional Instructions/Restrictions: Stop taking the Bactrim and take clindamycin instead. Follow-up with your primary care physician on Tuesday or Tuesday of next week to see if your symptoms are improving. If you develop any new or worsening symptoms, such as fever, worsening swelling or redness after 2 days of antibiotics, or if you become concerned for your health for any reason, return to the emergency department for evaluation. Clinical Impressions Clinical Impression: Cellulitis of hand Print Language Print Language: Albanian Discharge ED Provider: Teo Esteban Adult HPI General Chief complaint: PAIN Stated complaint: swelling, hands to shoulders Time Seen by Provider: 07/07/24 18:15 Mode of Arrival: Ambulatory Source of Information: Patient Limitations: No Limitations Description of Symptoms (Recalled from ER Triage Doc. by RN): pt recently seen at [facility] ER for same isues. pt report swelling in right wrist and elbow begining on when he was seen . pt reports swelling has progressedd to right shoulder, right hip, left side of throat, left hand and right hand. no difficulty breathing. pt diagnosed with lymphangitis and given bactrim . History of Present Illness HPI narrative: Batool Mobley is a 68-year-old male with a past medical history of COPD presenting to the emergency department for complaints of swelling in both of his hands. Patient states that on of last week, after hitting his elbow, he developed swelling to his right hand that then spread to his left hand. He states that he feels like his right shoulder is swollen and that his throat is swollen now. He notes that he has red streaking up his left hand into his arm. He was seen at [facility] on 07/05 and was told that he has not lymphangina and was prescribed Bactrim. He has been taking the Bactrim but states that his symptoms have not improved. He denies any fevers but does report some mild shortness of breath. He notes that something similar happened when he was diagnosed with cellulitis in the past that resolved with antibiotics. Related Data Home Medications ?Medication ?Instructions ?Recorded ?Confirmed dapagliflozin propanediol 10 mg 10 mg PO DAILY 02/09/22 02/09/22 tablet (Farxiga) metformin 1,000 mg tablet 1,000 mg PO BID 02/09/22 02/09/22 Previous Rx's ?Medication ?Instructions ?Recorded ascorbic acid (vitamin C) 500 mg 500 mg PO QID #120 tabs 11/18/21 tablet cefdinir 300 mg capsule 300 mg PO BID #20 caps 11/18/21 dexamethasone 6 mg tablet 6 mg PO DAILY #20 tabs 11/18/21 ergocalciferol (vitamin D2) 1,250 50,000 unit PO WEEKLY #4 caps 11/18/21 mcg (50,000 unit) capsule famotidine 20 mg tablet 20 mg PO BID #60 tabs 11/18/21 fluticasone 250 mcg-salmeterol 50 1 puffs IH BIDRT #1 ea 11/18/21 mcg/dose blistr powdr for inhalation gabapentin 600 mg tablet 600 mg PO TID #90 tabs 11/18/21 zinc sulfate 50 mg zinc (220 mg) 220 mg (4.4 x 50 mg zinc (220 mg)) 11/18/21 capsule PO DAILY albuterol sulfate 90 mcg/actuation 2 inh inhalation Q6H PRN shortness 02/09/22 aerosol inhaler of breath or wheezing 90 days #8.5 grams clindamycin HCl 300 mg capsule 300 mg PO TID 5 days #15 caps 07/07/24 Allergies Allergy/AdvReac Type Severity Reaction Status Date / Time No Known Allergies Allergy Verified 02/09/22 14:28 [facility] Disclaimer: The information contained in this section may have been updated after the patient was seen, as this information can be updated by other users. Medical History (Updated 07/07/24 @ 20:52 by Teo Esteban MD) Screening for lung cancer COPD (chronic obstructive pulmonary disease) Pulmonary nodule, right Restrictive lung disease Pulmonary emphysema Smoking greater than 30 pack years Dyspnea on exertion Tobacco abuse counseling History of 2019 novel coronavirus disease (COVID-19) Surgical History (Updated 07/12/22 @ 10:06 by Digna Spangler RT) History of appendectomy Family History (Updated 07/12/22 @ 10:07 by RT Mundo) Other Coronary artery disease Hypertension Social History Smoking Status: Current every day smoker tobacco type: cigarettes packs per day: 2 alcohol intake: never current occupational status: retired Travel in the last 8 weeks: None household members: spouse housing: house Other Medical History Have you received the Flu Vaccine for this season: No Have you received the Pneumonia Vaccine: No ROS Obtained: Yes Systems reviewed as appropriate & no additional complaints except as documented Physical Exam General General appearance: alert, in no apparent distress and obese Head Head exam: atraumatic Eye Eye exam: Present normal appearance ENT ENT exam: Present normal external ear exam Neck Neck exam: Present full ROM Chest Chest inspection: Present symmetric chest wall rise Respiratory Respiratory exam: Present normal lung sounds bilaterally; Absent respiratory distress Cardiovascular Cardiovascular exam: Present regular rate and normal rhythm Abdominal Exam Abdominal exam: Present soft; Absent tenderness or guarding exam: Present deferred Extremities Exam Extremities exam: Present normal inspection and other (Mild swelling to the knuckles of the right hand without erythema, warmth.) Back Exam Back exam: Present normal inspection Neurological Exam Neurological exam: Present alert and oriented X3 Psychiatric Psychiatric exam: Present normal affect Skin Skin exam: Present warm, dry, erythema and other (Erythema, swelling and warmth to the dorsum of the left hand extending up to the mid forearm. There is lymphadenitis extending volarly up to the elbow along the left upper extremity.) Medical Decision Making Medical Records Screening: Per USPSTF and CDC recommendations, given the prevalence of disease in our region, it is our hospital?s policy to screen for HIV and viral Hepatitis for all patients aged 18 and over and those with ongoing risk factors. Robert Inquiry Pt receiving controlled substance: No Vital Signs: 07/07/24 18:06 07/07/24 18:31 07/07/24 19:00 Temperature 98.0 F Temperature Source Oral Pulse Rate 98 H 93 H Pulse Rate [Left Radial] 105 H Respiratory Rate 13 Blood Pressure 139/78 122/96 H Blood Pressure [Right Arm] 162/72 H Blood Pressure Mean 86 103 Blood Pressure Mean [Right Arm] 102 02 Sat by Pulse Oximetry 93 L 94 L 97 Oxygen Delivery Method Room Air Room Air Room Air 07/07/24 19:48 Temperature Temperature Source Pulse Rate 91 H Pulse Rate [Left Radial] Respiratory Rate Blood Pressure 143/83 H Blood Pressure [Right Arm] Blood Pressure Mean Blood Pressure Mean [Right Arm] 02 Sat by Pulse Oximetry 95 Oxygen Delivery Method Lab Data Lab Results 07/07/24 18:42: WBC 9.8, RBC 4.80, Hgb 15.3, Hct 46.0, MCV 95.7 H, MCH 31.8 H, MCHC 33.2, RDW 14.2, Plt Count 252, MPV 7.4, Neut % (Auto) 78.7, Lymph % (Auto) 15.4, Loving % (Auto) 4.5, Eos % (Auto) 1.0, Baso % (Auto) 0.4, Neut # (Auto) 7.7, Lymph # (Auto) 1.5, Loving # (Auto) 0.4, Eos # (Auto) 0.1, Baso # (Auto) 0.0, Sodium 140, Potassium 4.4, Chloride 108 H, Carbon Dioxide 23, Anion Gap 13.4, BUN 20, Creatinine 1.20, Estimated Creat Clear 64, Estimated GFR 61, Est GFR ( Amer) 73, Glucose 195 H, Calcium 8.8, Total Bilirubin 0.5, AST 35, ALT 24, Alkaline Phosphatase 76, Troponin I < 0.01, NT-Pro-B Natriuret Pep 119, Total Protein 7.1, Albumin 4.0, Globulin 3.1, Albumin/Globulin Ratio 1.3 07/07/24 18:42 07/07/24 18:42 Orders (Tests/Meds): ED MEDICATIONS Discontinued Medications Generic Name Dose Route Start Last Admin Trade Name Valeriy PRN Reason Stop Dose Admin Morphine Sulfate 4 mg 07/07/24 19:04 07/07/24 19:11 Morphine 4mg/Ml Syringe IV 07/07/24 19:05 4 mg ONCE ONE Administration ORDERS Category Date Time Status CXR 2 view (NOT portable) [XR chest 2V] Stat Exams 07/07/24 18:25 Completed BNP [NT Pro Brain Natriuretic Pep.] Stat Lab 07/07/24 18:42 Completed CBC w/Auto Diff [Complete Blood Count Auto Diff] Stat Lab 07/07/24 18:42 Completed CMP [Comprehensive Metabolic Panel] Stat Lab 07/07/24 18:42 Completed HIV (1&2) Antibody Rapid Stat Lab 07/07/24 18:42 Received Hep C Ab with Reflex to RNA Stat Lab 07/07/24 18:42 Received Troponin I Q3H Lab 07/07/24 21:30 Ordered Troponin I Q3H Lab 07/08/24 00:30 Ordered Troponin I Stat Lab 07/07/24 18:42 Completed ECG Data Tracing #1: I reviewed this ECG and interpreted as documented below: EKG interpreted by me personally at 1735. Sinus tachycardia with ventricular rate of 116 bpm, QTc 408. Normal axis. No ST elevations or depressions. Normal NC interval. Medical Decision Narrative: Santino Renae is a 68y male with a history of COPD and obesity who presents to the emergency department for complaints of swelling and redness in both of his hands. Patient states that on of last week, he hit his right elbow and then subsequently developed swelling to his hand. He states that starting today, the swelling is spread to his right shoulder and his left hand. He notes some redness in his left hand that is tracking up his left arm. He was seen on 07/05 at [facility] and was diagnosed with lymphangitis and was started on Bactrim. He has been taking this as prescribed, however his symptoms have persisted. He is reporting some shortness of breath as well but denies any chest pain, abdominal pain or fever. Patient stated that this has happened once before when he was diagnosed with cellulitis in his lower extremities and resolved after antibiotics.On arrival, patient is tachycardic but hemodynamically stable, afebrile, breathing comfortably on room air with appropriate oxygen saturations. Physical exam, as stated above, demonstrating overall well-appearing male. He has some mild swelling into the knuckles of his right hand with tenderness in this area but no erythema noted on the right upper extremity. He has erythema, swelling and tenderness throughout his right hand along the dorsal aspect with redness tracking along the volar and dorsal aspect of the hand near the elbow. Cardiopulmonary exam is unremarkable. The remainder of his physical exam is grossly unremarkable as well. Differential diagnosis includes: Cellulitis, lymphangitis, lymphadenopathy, heart failure, ACS pneumonia, among others Patient's workup in the emergency department included: CBC, BMP, chest x-ray, troponin, BNP Patient's workup in the emergency department was unremarkable and nonactionable except for glucose of 195. A troponin less than 0.01. BNP normal. No leukocytosis. Electrolytes within normal limits. Chest x-ray was interpreted by me personally. There are some mild increased interstitial opacities but no focal consolidations. Low concern for pneumonia at this time. See radiology report for final details. Patient's clinical picture is most consistent with cellulitis is felt that he would benefit from a course of clindamycin instead of Bactrim. Does not seem that the patient is quite failed outpatient antibiotic treatment yet as he has only been on the medication for 1.5 days. Patient notes that he has a primary care physician that he can follow-up with regularly. He was instructed to follow-up with them on Tuesday or Tuesday of next week, however given strict return precautions for worsening infection. He was told to stop taking the Bactrim and to take the clindamycin instead. All questions were answered. He demonstrated understanding and was in agreement with this plan. He was then discharged from the emergency department in stable condition. Critical Care Critical Care Time Critical Care Time: No
[2024-07-07 18:31] VITALS: BP 139/78; PULSE 98; O2SAT 94
[2024-07-07 18:49] LABS: Basophils % 0.4 % (0.1-2.0); Eosinophils # 0.1 K/mm3 (0.0-0.4); Hemoglobin 15.3 g/dL (14.1-18.0); Lymphocytes # 1.5 K/mm3 (0.7-4.5); Lymphocytes % 15.4 % (10-50); Mean Corpuscular HGB Conc 33.2 g/dL (31.8-35.4); Mean Corpuscular Hemoglobin 31.8 pg (27.0-31.2); Mean Corpuscular Volume 95.7 fl (80-94); Mean Platelet Volume 7.4 fl (7.4-10.4); Monocytes # 0.4 K/mm3 (0.1-1.0); Monocytes % 4.5 % (1.7-9.3); Neutrophils # 7.7 K/mm3 (1.8-7.8); Neutrophils % 78.7 % (37.0-80.0); Platelet Count 252 K/mm3 (142-424); Red Cell Distribution Width 14.2 % (11.5-17.5); White Blood Count 9.8 K/mm3 (4.8-10.8)
[2024-07-07 18:53] LABS: Chloride 108 mmol/L (98-107)
[2024-07-07 18:54] LABS: Potassium 4.4 mmoL/L (3.5-5.1); Sodium 140 mmol/L (136-145)
[2024-07-07 18:56] LABS: Blood Urea Nitrogen 20 mg/dl (9-20); Creatinine Clearance Estimated 64 mL/min (50-200); Estimated Glomerular Filt Rate 61 ml/min (>60); GFR (African American) 73 ML/MIN (>60)
[2024-07-07 18:57] LABS: Alanine Aminotransferase 24 U/L (12-78); Albumin/Globulin Ratio 1.3 (1.1-1.8); Alkaline Phosphatase 76 U/L (38-126); Anion Gap 13.4 mEq/L (5-15); Aspartate Amino Transferase 35 U/L (17-59); Bilirubin,Total 0.5 mg/dl (0.2-1.3); Calcium 8.8 mg/dl (8.4-10.2); Carbon Dioxide 23 mmol/L (22.0-30.0); Globulin 3.1 g/dL (1.3-3.2); Glucose 195 mg/dl (74-100); Total Protein,Serum 7.1 g/dl (6.3-8.2)
[2024-07-07 19:00] VITALS: BP 122/96; PULSE 93; O2SAT 97
[2024-07-07 19:06] LABS: NT Pro Brain Natriuretic Pep. 119 pg/mL (0-125)
[2024-07-07] MEDS: MORPHINE 4MG/ML SYRINGE 4 MG IV (19:11)
[2024-07-07 19:12] LABS: Troponin I < 0.01 ng/ml (0.00-0.034)
[2024-07-07 19:48] VITALS: BP 143/83; PULSE 91; O2SAT 95
[2024-07-07 20:53] VITALS: BP 140/84; PULSE 90; RESP 18; TEMP 36.7; O2SAT 96
[2024-07-08 02:47] LABS: HIV (1&2) Antibody Rapid NONREACTIVE (NONREACTIVE)
[2024-07-10 05:16] LABS: HCV Ab Non Reactive (Non Reactive)
== END 2024-07-07 21:03 | disposition home or self-care (01) ==
PROVIDERS: Emergency Provider Student in an Organized Health Care Education/Training Program; PCP Emergency Medicine
DX: L03.119 Cellulitis of unspecified part of limb (principal); R22.33 Localized swelling, mass and lump, upper limb, bilateral; R22.1 Localized swelling, mass and lump, neck
CPT/HCPCS: 71046; 80053; 83880; 84484; 85025; 86803; 87389; 96374; 99284; J2270